=== PATIENT | male | born 1935 ===

== ENCOUNTER 2020-05-25 06:50 | Day surgery (SDC) | payer OTHER ==
[~2020-05-25 06:50] MED LIST: CLONAZEPAM1 MG PO; DILTIAZEM ER180 M3 PO; GLIMEPIRIDE2 MG; JANUMET XR 50-1 EAC1 PO; ZESTORETIC 20-1 EAC1 PO
[2020-05-25] MEDS ORDERED: ULTRACET PO (10:10)
== END 2020-05-25 12:50 | disposition home or self-care (01) ==
LOC: CIR.AMB 06:50
PROVIDERS: ATTEND Surgery
DX: R15.9 Full incontinence of feces (principal); Z20.822 Contact with and (suspected) exposure to COVID-19
CPT/HCPCS: 64581; 95972; C1778

== ENCOUNTER 2020-06-08 06:55 | Day surgery (SDC) | payer OTHER ==
[~2020-06-08 06:55] MED LIST changes: +ULTRACET PO
[2020-06-08] MEDS ORDERED: ACETAMINOPHEN500 M2 PO (09:56)
== END 2020-06-08 11:45 | disposition home or self-care (01) ==
LOC: CIR.AMB 06:55
PROVIDERS: ATTEND Surgery
DX: R15.9 Full incontinence of feces (principal); Z20.822 Contact with and (suspected) exposure to COVID-19
CPT/HCPCS: 64590; 95971; L8679